=== PATIENT | male | born 1965 | race Caucasian/White ===

== ENCOUNTER 2024-12-28 06:05 | Day surgery (SDC) | payer OTHER, SELFPAY ==
[2024-12-28 08:04] VITALS: BMI 26.6
[2024-12-28 08:05] VITALS: BMI 26.6
[2024-12-28 08:09] VITALS: BP 127/79
[2024-12-28 10:22] VITALS: BP 117/79
[2024-12-28 10:30] VITALS: BP 124/79
[2024-12-28 10:45] VITALS: BP 132/75
== END 2024-12-28 11:30 | disposition home or self-care (01) ==
LOC: GI 06:05
PROVIDERS: ATTENDING PHYSICIAN Internal Medicine Gastroenterology
DX: Z12.11 Encounter for screening for malignant neoplasm of colon (principal); D12.2 Benign neoplasm of ascending colon; D12.3 Benign neoplasm of transverse colon; D12.5 Benign neoplasm of sigmoid colon; K62.1 Rectal polyp; K64.0 First degree hemorrhoids; Z86.0100 Personal history of colon polyps, unspecified
CPT/HCPCS: 45385; 88305